=== PATIENT | male | born 1990 | race Hispanic/Latino ===

== ENCOUNTER 2016-11-28 21:22 | Inpatient (IN) | payer MEDICAID, OTHER ==
--- NOTE | 2016-11-28 22:01 | C.PDOC ---
History Of Present Illness 26 year old male who presents to the ER as a prescreen for prescription opiate detox. Patient is requesting transition to suboxone, last use of opana was this morning. Patient is currently complaining of abdominal cramping and myalgias, he reports having a Hx of IBS. 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 Denies nausea, vomiting, fever, chills , or diarrhea. PRESCREEN FOR PRESCRIPTION OPIATE DETOX. PS REQUESTING TRANSITION TO SUBOXONE. LAST DOSE [place] THIS MORNING. +ABD CRAMPING. HO IBS "HARD TO TELL IF IT'S MY IBS OR WITHDRAWAL". S/P BENTYL SCALP TREATMENT OPERATOR. +MYALGIA. 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 NO ACUTE INTOX REMAINDER NEG Time Seen by Provider: 11/28/16 21:45 Chief Complaint (Nursing): Substance Abuse History Per: Patient History/Exam Limitations: no limitations Onset/Duration Of Symptoms: Hrs Current Symptoms Are (Timing): Still Present Suicide/Self Injury Attempted (Context): None Modifying Factor(s): Narcotics Associated Symptoms: denies: Depression, Suicidal Thoughts, Suicidal Plan Involuntary Hold By: None Recent travel outside of the [place]: No Past Medical History Reviewed: Historical Data, Nursing Documentation, Vital Signs Vital Signs: Last Vital Signs Temp 98.6 F 11/28/16 21:37 Pulse 87 11/28/16 21:37 Resp 16 11/28/16 21:37 BP 132/92 H 11/28/16 21:37 Pulse Ox 98 11/28/16 22:45 - Medical History PMH: Anxiety, Crohn's Disease Surgical History: Back Surgery (FUSION X2) Family History: States: Unknown Family Hx - Social History Hx Alcohol Use: Yes Hx Substance Use: Yes - Immunization History Hx Tetanus Toxoid Vaccination: No Hx Influenza Vaccination: No Hx Pneumococcal Vaccination: No Review Of Systems Except As Marked, All Systems Reviewed And Found Negative. Constitutional: Negative for: Fever, Chills Gastrointestinal: Positive for: Abdominal Pain. Negative for: Nausea, Vomiting , Diarrhea Musculoskeletal: Positive for: Other (Myalgias) Physical Exam - Physical Exam Appears: Non-toxic, No Acute Distress, Other (Calm, Cooperative, No acute intoxication) Skin: Normal Color, Warm, Dry Head: Atraumatic, Normacephalic Oral Mucosa: Moist Chest: Symmetrical, No Tenderness Cardiovascular: Rhythm Regular, No Murmur Respiratory: Normal Breath Sounds, No Rales, No Rhonchi, No Wheezing Gastrointestinal/Abdominal: Soft, No Tenderness Neurological/Psych: Oriented x3, Normal Speech, Normal Cognition ED Course And Treatment - Laboratory Results Result Diagrams: 11/28/16 22:21 11/28/16 22:21 O2 Sat by Pulse Oximetry: 98 (Room air) Pulse Ox Interpretation: Normal Reevaluation Time: 22:45 Reassessment Condition: Improved (MED CLEAR FOR DETOX. CRISIS NOTIFIED) Medical Decision Making Medical Decision Making: Plan: * Blood work * Urinalysis * Catapres * Motrin * Zofran Disposition Counseled Patient/Family Regarding: Studies Performed, Diagnosis - Disposition Disposition: HOSPITALIZED Disposition Time: 23:48 Condition: STABLE Forms: [facility] (Frisian) - Clinical Impression Clinical Impression: Opiate dependence - Scribe Statement The provider has reviewed the documentation as recorded by the Scribe Terrence Contreras All medical record entries made by the Scribe were at my direction and personally dictated by me. I have reviewed the chart and agree that the record accurately reflects my personal performance of the history, physical exam, medical decision making, and the department course for this patient. I have also personally directed, reviewed, and agree with the discharge instructions and disposition. Decision To Admit - Pt Status Changed To: Hospital Disposition Of: Inpatient - Admit Certification Admit to Inpatient:: After my assessment, the patient will require hospitalization for at least two midnights. This is because of the severity of symptoms shown, intensity of services needed, and/or the medical risk in this patient being treated as an outpatient. - InPatient: Physician Admission Certification: I certify that this patient requires 2 or more midnights of care for the following reason:: SEE NOTE - . Bed Request Type: Detox Admitting Physician: Maxime Begum Patient Diagnosis: Opiate dependence
[2016-11-28 22:24] LABS: BASO % 0.6 % (0.0-2.0); EOS # 0.1 K/uL (0.0-0.7); EOS % 1.8 % (0.0-4.0); HEMATOCRIT 43.3 % (35.0-51.0); LYMPH % 28.9 % (20.0-40.0); MEAN CELL VOLUME 83.2 fL (80.0-94.0); MEAN CORPUSCULAR HEMOGLOBIN 29.2 pg (27.0-31.0); MEAN CORPUSCULAR HGB CONC 35.1 g/dL (33.0-37.0); MEAN PLATELET VOLUME 7.2 fL (7.2-11.7); MONO # 0.5 K/uL (0.0-0.8); MONO % 7.2 % (0.0-10.0); RED CELL DISTRIBUTION WIDTH 13.1 % (11.5-14.5); WHITE BLOOD COUNT 6.8 K/uL (4.8-10.8)
[2016-11-28 22:29] LABS: RBC URINE 36 /hpf (0-3); URINE BACTERIA RARE (<OCC); URINE BILIRUBIN NEGATIVE (NEGATIVE); URINE COLOR Yellow (YELLOW); URINE GLUCOSE (UA) NORMAL (Normal); URINE KETONE NEGATIVE (NEGATIVE); URINE LEUKOCYTE ESTERASE NEG Leu/uL (Negative); URINE PROTEIN NEGATIVE (NEGATIVE); URINE UROBILINOGEN NORMAL mg/dL (0.2-1.0); WBC URINE 5 /hpf (0-5)
[2016-11-28 22:30] LABS: URINE BLOOD 3+ (NEGATIVE)
[2016-11-28 22:39] LABS: CHLORIDE 101 mmol/L (98-107)
[2016-11-28 22:40] LABS: POTASSIUM 3.6 mmol/L (3.6-5.2); SODIUM 143 mmol/L (132-148)
[2016-11-28 22:42] LABS: ALB/GLOB RATIO 1.7 (1.0-2.1); ALKALINE PHOSPHATASE 55 U/L (38-126); AST/SGOT 20 U/L (17-59); BILIRUBIN,TOTAL 0.6 mg/dL (0.2-1.3); CARBON DIOXIDE 28 mmol/L (22-30); GFR AFRICAN-AMERICAN > 60; TOTAL PROTEIN 6.6 g/dL (6.3-8.3)
[2016-11-28 22:43] LABS: ALCOHOL SERUM < 10 mg/dl (0-10); ALT/SGPT 27 U/L (21-72); BLOOD UREA NITROGEN 11 mg/dL (9-20); CALCIUM 9.2 mg/dl (8.6-10.4); GLUCOSE,RANDOM 91 mg/dL (75-110)
--- NOTE | 2016-11-29 14:50 | PCM.PSYCH ---
Initial Psychiatric Evaluation - Initial Psychiatric Evaluation Type of Admission: Voluntary Legal Status: Capacity Chief Complaint (in patient's own words): I want to stop using my oxymorphone History of Present Illness and Precipitating Events: Patient is a 26 years old, single, part-time employee, male with no previous psychiatric history was admitted due to treatment of oxymorphone, angiolytic and cannabis use. Patient reported that around 2013 he had his spinal fusion surgery had held 12 L4 level since then he is taking oxymorphone. In the beginning he was taking 40 mg 3 times a day but currently reduced to 5 mg twice a day. Patient wants to stop it completely and wants to go to either Suboxone or methadone clinic. Angiolytic: Reported since 2013 when he started taking oxymorphone he was also prescribed Xanax which she was taking up to 4 mg 3 times a day. His urine drug screen was also positive for cannabis, which patient reported it was a medical cannabis for chronic IBS. Denied use of cocaine or alcohol. Patient has 2 spinal fusions surgeries at the level of L2- L4. He was born in [place]. His pressures degree education. Works as a part- time. Lives with parents also support him. Never and has no children height is 6 feet 0 inches and weight is 210 pounds. Current Medications: Active Medications Generic Name Dose Route Start Last Admin Trade Name Freq PRN Reason Stop Dose Admin Dicyclomine HCl 10 mg 11/29/16 01:51 11/29/16 01:59 Bentyl PO 10 mg QID PRN Administration Muscle spasm Gabapentin 600 mg 11/29/16 14:00 11/29/16 13:13 Neurontin PO 600 mg TID MOISE Administration Hydroxyzine HCl 25 mg 11/29/16 01:56 11/29/16 01:59 Atarax PO 25 mg Q6 PRN Administration Anxiety Ibuprofen 400 mg 11/29/16 06:38 11/29/16 13:55 Motrin Tab PO 400 mg Q6 PRN Administration Pain, moderate (4-7) Loperamide HCl 2 mg 11/29/16 06:36 Imodium PO Q8 PRN Diarrhea Lorazepam 1 mg 11/29/16 06:32 11/29/16 10:33 Ativan PO 1 mg Q6H PRN Administration Symptoms Of Withdrawl Methadone HCl 15 mg 11/30/16 10:30 Methadone PO 11/30/16 10:31 ONCE ONE Trazodone HCl 50 mg 11/29/16 01:41 11/29/16 01:51 Desyrel PO 50 mg HS PRN Administration Insomnia Past Psychiatric History - Past Psychiatric History Previous Treatment History: None History of Abuse: None reported History of ETOH/Drug Use: See HPI History of Family Illness: None reported Pertinent Medical Hx (Current Medical&Sleep Prob, Allergies): Allergies Allergy/AdvReac Type Severity Reaction Status Date / Time No Known Allergies Allergy Verified 11/28/16 21:41 Alprazolam [Xanax] 4 mg PO DAILY 11/28/16 Dicyclomine [Dicyclomine HCl] 10 mg PO DAILY 11/28/16 Gabapentin 600 mg PO QID 11/28/16 Oxymorphone HCl 10 mg PO DAILY 11/28/16 Crohn's disease IBS Review of Systems - Psychiatric Psychiatric: Depression, Other Mental Status Examination - Personal Presentation Personal Presentation: Looks stated age - Affect Affect: Depressed - Motor Activity Motor Activity: Calm - Reliability in Providing Information Reliability in Providing Information: Fair - Speech Speech: Organized - Mood Mood: Depressed - Formal Thought Process Formal Thought Process: No Impairment - Hallucinations/Delusions Hallucinations: Other (None reported) Delusions: Other - Obsessions/Compulsions Obsessions: None Compulsions: None - Cognitive Functions Orientation: Person, Place, Situation, Time Sensorium: Alert Attention/Concentration: Attentive Abstract Thinking: [place] Judgement: Imparied, as evidence by: Lack of insight into illness Memory: Recent intact, as evidence by: 3/3 object recall, Remote intact, as evidenced by: Ability to recall historical events - Risk Risk: Withdrawal, Diminished functioning - Strength & Assets Inventory Strength & Assets Inventory: Skills, Cooperative - Limitations Limitations: Other DSM 5 DX - DSM 5 DSM 5 Diagnosis: Opiate use disorder Anxiolytics use disorder - Recommended/Plan of Treatment Treatment Recommendations and Plan of Treatment: Patient education Supportive therapy We'll start methadone taper for opiate withdrawal symptoms. Patient preferred methadone over Subutex Ativan 1 mg every 6 when necessary for anxiolytics withdrawal symptoms Other when necessary medications Projected ELOS: 4-5 days - Smoking Cessation Smoking Cessation Initiated: No Reason for not providing: Patient doesn't smoke cigarettes
--- NOTE | 2016-11-30 15:11 | PCM.PYCHPN ---
Psychiatric Progress Note - Psychiatric Progress Note Patient seen today, length of contact: 15 minutes Patient Chief Complaint: I'm feeling better Problems Identified/Issues Discussed: Patient seen. Chart reviewed. Case discussed with the staff. Issues related to illness and treatment were discussed with the patient. Reported compliant with treatment with no adverse affects. Tolerating treatment very well. Reported feeling much better with the treatment with only a few withdrawal symptoms. At the time of evaluation, patient was awake alert oriented 3, had no delusions, no auditory or visual hallucinations, no suicidal ideations or homicidal ideations. Medical Problems: Crohn's disease I Diagnostic Results: Reviewed DSM 5 Symptoms Update: Improving with treatment Medication Change: No Medical Record Reviewed: Yes Mental Status Examination - Cognitive Function Orientation: Person, Place, Situation, Time Memory: Intact Attention: WNL Concentration: WNL Association: WNL Fund of Knowledge: [facility] Decription of patient's judgement and insights: Fair - Mood Mood: Depressed (Less than before) - Affect Affect: Depressed, Other (Appropriate) - Speech Speech: Appropriate - Formal Thought Process Formal Thought Process: No Impairment Psychotic Thoughts and Behaviors: None - Suicidal Ideation Suicidal Ideation: No - Homicidal Ideation Homicidal Ideation: No Goal/Treatment Plan - Goal/Treatment Plan Need for Continued Stay: Remain at risks for inpatient hospitalization, Discharge may exacerbated symptoms, Severe functional impairment Progress Toward Problem(s) and Goals/Treatment Plan: Patient education Supportive therapy Continue treatment as before Patient will go to a methadone maintenance program after discharge for follow- up care Estimated Date of D/C: 12/02/16 - Smoking Cessation Smoking Cessation Initiated: No Reason for not providing: Patient doesn't smoke cigarettes
[2016-11-30 15:37] VITALS: RESP 18
--- NOTE | 2016-12-01 13:43 | PCM.PYCHPN ---
Psychiatric Progress Note - Psychiatric Progress Note Patient seen today, length of contact: 15 minutes Patient Chief Complaint: I'm feeling better. Can I go home today Problems Identified/Issues Discussed: Patient seen. Chart reviewed. Case discussed with the staff. Issues related to illness and treatment were discussed with the patient. Reported compliant with treatment with no adverse affects. Tolerating treatment very well. Reported feeling much better with the treatment. patient wants to go home today as patient has appointment at methadone maintenance clinic tomorrow morning. At the time of evaluation, patient was awake alert oriented 3, had no delusions, no auditory or visual hallucinations, no suicidal ideations or homicidal ideations. Medical Problems: Crohn's disease I Diagnostic Results: Reviewed DSM 5 Symptoms Update: Improving with treatment Medication Change: No Medical Record Reviewed: Yes Mental Status Examination - Cognitive Function Orientation: Person, Place, Situation, Time Memory: Intact Attention: WNL Concentration: WNL Association: WNL Fund of Knowledge: [facility] Decription of patient's judgement and insights: Fair - Mood Mood: Neutral - Affect Affect: Other (Appropriate) - Speech Speech: Appropriate - Formal Thought Process Formal Thought Process: No Impairment Psychotic Thoughts and Behaviors: None - Suicidal Ideation Suicidal Ideation: No - Homicidal Ideation Homicidal Ideation: No Goal/Treatment Plan - Goal/Treatment Plan Need for Continued Stay: Remain at risks for inpatient hospitalization, Discharge may exacerbated symptoms, Severe functional impairment Progress Toward Problem(s) and Goals/Treatment Plan: Patient education Supportive therapy Continue treatment as before Patient will go to a methadone maintenance program after discharge for follow- up care Estimated Date of D/C: 12/02/16 - Smoking Cessation Smoking Cessation Initiated: No
[2016-12-01 16:23] VITALS: BP 111/74; PULSE 88; TEMP 98.7; O2SAT 99
== END 2016-12-01 19:01 | disposition home or self-care (01) | DRG 745 ==
LOC: C.ER 21:22 → C.7D 23:48
PROC: HZ2ZZZZ Detoxification Services for Substance Abuse Treatment (ICD-10-PCS; principal; 2016-11-28)
PROC: HZ59ZZZ Individual Psychotherapy for Substance Abuse Treatment, Supportive (ICD-10-PCS; 2016-11-28)
DX: F11.23 Opioid dependence with withdrawal (principal); K50.90 Crohn's disease, unspecified, without complications; F13.230 Sedative, hypnotic or anxiolytic dependence with withdrawal, uncomplicated; M79.1 Myalgia; F41.9 Anxiety disorder, unspecified; F12.90 Cannabis use, unspecified, uncomplicated